=== PATIENT | female | born 1940 | race Hispanic/Latino ===

== ENCOUNTER 2017-01-30 12:49 | Outpatient (CLI) | payer MEDICARE, OTHER ==
--- NOTE | 2017-01-30 16:24 | MRI ---
MRI THORACIC SPINE NONCONTRAST 01/30/17 HISTORY: Back pain. Falls. FINDINGS: The spinal cord throughout the thoracic levels has a normal appearance without evidence of compressi on, expansion or abnormal signal. There is minimal compression of the T7 superior end plate and L1 s uperior end plate with normal bone marrow signal. No residual edema is evident. Very mild posterior disc bulges are present at the T8-9, T9-10, T10-11, and T12-L1 levels without si gnificant compromise of the central canal. No significant foraminal stenosis is apparent. Images including the retroperitoneum shows cysts arising from the cortex of the right kidney. IMPRESSION: 1. Mild chronic compression to the T7 and L1 superior end plates without residual edema. 2. Mild multilevel disc bulges without focal nerve root compression evident. POS: [facility]
== END 2017-01-30 12:50 | disposition home or self-care (01) ==
LOC: SCSMRI 12:49
PROVIDERS: ATTEND Neurological Surgery
DX: M51.14 Intervertebral disc disorders with radiculopathy, thoracic region (principal); G95.29 Other cord compression; M51.04 Intervertebral disc disorders with myelopathy, thoracic region
CPT/HCPCS: 72146

== ENCOUNTER 2017-11-29 21:20 | Inpatient (IN) | payer MEDICARE, OTHER ==
[2017-11-29] MEDS ORDERED: Ondansetron HCl/PF 4 MG/2 ML Vial IVP PRN (22:08)
[2017-11-29] MEDS ORDERED: Ondansetron ODT 4 MG TAB SL PRN (22:08)
[2017-11-29] MEDS ORDERED: Acetaminophen 325 MG TAB PO PRN (22:08)
[2017-11-29] MEDS ORDERED: Sodium Chloride 0.9% 1,000 ML IV SCH (22:08)
[2017-11-29] MEDS ORDERED: Insulin Regular 300 UNITS/3 ML VIAL SC PRN (22:09)
[2017-11-29] MEDS ORDERED: Dextrose 50% Abboject 50 ML SYRINGE IVP PRN (22:09)
[2017-11-29] MEDS ORDERED: Dextrose 5% in Water 1,000 ML IV PRN (22:09)
[2017-11-29] MEDS ORDERED: PROVENTIL INHALER 6.7 G (200 INHALATIONS) INH PRN (22:48)
[2017-11-29] MEDS ORDERED: HYDROcodone/Acetaminophen 10/325 mg Tablet PO PRN (22:48)
[2017-11-29 22:50] VITALS: BMI 25.5
[2017-11-29] MEDS ORDERED: Amitriptyline HCl 25 MG TAB PO SCH (23:30)
[2017-11-30] MEDS ORDERED: Acetaminophen 650 MG in Premix Bag 1 BAG IVPB PRN (00:01)
[2017-11-30] MEDS ORDERED: Acetaminophen 1,000 MG in Premix Bag 1 BAG IVPB PRN (01:23)
[2017-11-30 05:08] LABS: #Eosinphils 0.1 thou/uL (0.0-0.7); #Lymphocytes 0.9 thou/uL (1.20-3.40); #Monocytes 0.6 thou/uL (0.11-0.59); #Neutrophils 7.6 thou/uL (1.40-6.50); %Basophils 0.3 % (0.0-1.0); %Eosinophils 0.7 % (0.0-10.0); %Lymphocytes 10.2 % (21.0-51.0); %Monocytes 6.4 % (0.0-10.0); %Neutrophils 82.5 % (42.0-75.0); Hemoglobin 13.1 g/dL (12.0-16.0); Mean Corpuscular HGB CONC 34.8 g/dL (32.0-36.0); Mean Corpuscular Volume 89.1 fL (78.0-98.0); Mean Platelet Volume 8.9 fL (7.4-10.4); Platelet Count 138 thou/uL (130-400); RBC Distribution Width 12.4 % (11.5-14.5); Red Blood Cell (RBC) Count 4.24 mill/uL (4.20-5.40); White Blood Cell (WBC) Count 9.2 thou/uL (4.8-10.8)
[2017-11-30] MEDS ORDERED: Vancomycin HCl 1 GM in Premix Bag 1 BAG IVPB SCH ×2 (05:30→18:00)
[2017-11-30] MEDS ORDERED: Ibuprofen 200 MG TAB PO SCH (05:30)
[2017-11-30 05:42] LABS: Anion Gap 14 mmol/L (10-20); BUN (Urea Nitrogen) 9 mg/dL (9.8-20.1); Calc. Creatinine Clearance 58 mL/min (70-130); Calcium 9.6 mg/dL (7.8-10.44); Carbon Dioxide 23 mmol/L (23-31); Chloride 104 mmol/L (98-107); Estimated GFR-MDRD 63; Glucose 109 mg/dL (83-110); Potassium 4.2 mmol/L (3.5-5.1); Sodium 137 mmol/L (136-145)
[2017-11-30] MEDS ORDERED: Loperamide HCl 2 MG CAP PO PRN (06:40)
[2017-11-30] MEDS ORDERED: Milk Of Magnesia 30 ML UDCUP PO PRN (06:40)
[2017-11-30] MEDS ORDERED: Diabetic Tussin 200 MG/10 ML UDCUP PO PRN (06:40)
[2017-11-30] MEDS ORDERED: Mag-Al 1200 mg/1200 mg/30 ML UDCUP PO PRN (06:40)
[2017-11-30] MEDS ORDERED: Sodium Chloride 0.65% Nasal 44 ML BOT EA NARE PRN (06:40)
[2017-11-30] MEDS ORDERED: Chloraseptic Spray 180 ml Bottle PO PRN (06:40)
[2017-11-30] MEDS ORDERED: Eucerin (Mineral Oil/Petrolatum,White) 30 gm Jar TOP PRN (06:40)
[2017-11-30] MEDS ORDERED: Artificial Tears 18 DROP/0.9 ML EA EYE PRN (06:40)
[2017-11-30] MEDS ORDERED: Loratadine 10 MG TAB PO PRN (06:40)
[2017-11-30] MEDS ORDERED: HumaLOG 300 UNITS/3 ML VIAL SC PRN (06:40)
[2017-11-30] MEDS ORDERED: hydrALAZINE 20 MG/ML VIAL SLOW IVP PRN (06:40)
[2017-11-30] MEDS ORDERED: Senokot 8.6 MG TAB PO PRN (06:40)
[2017-11-30] MEDS ORDERED: Dextrose 5% in Water 1,000 ML IV PRN (06:40)
[2017-11-30] MEDS ORDERED: Ondansetron ODT 4 MG TAB PO PRN (06:43)
[2017-11-30] MEDS ORDERED: HYDROcodone/Acetaminophen 5/325 mg Tablet PO PRN (06:43)
[2017-11-30] MEDS ORDERED: Ondansetron HCl/PF 4 MG/2 ML Vial IVP PRN (06:43)
[2017-11-30] MEDS ORDERED: Metoclopramide HCl 10 MG/2 ML VIAL IVP PRN (06:43)
[2017-11-30] MEDS ORDERED: Dextrose 50% Abboject 50 ML SYRINGE SLOW IVP PRN (06:43)
[2017-11-30] MEDS ORDERED: Acetaminophen 325 MG TAB PO PRN (06:43)
[2017-11-30] MEDS ORDERED: cefTRIAXone\\ROCEPHIN 2 GM in Sodium Chloride 0.9% 100 ML IVPB SCH (07:00)
--- NOTE | 2017-11-30 07:24 | HP ---
DATE OF ADMISSION: 11/29/2017 PRIMARY CARE PHYSICIAN: Maryanne Henry M.D. CODE STATUS: FULL CODE. TIME OF EVALUATION: 10:35 p.m. CHIEF COMPLAINT: Confusion and fever. HISTORY OF PRESENT ILLNESS: This is a 77-year-old female with past medical history of diabetes, hype rlipidemia, came to hospital after having change in mental status, fever, generalized weakness, inabi lity to complete her activities of daily living due to the weakness. As note, the patient has a hist ory of recurrent UTI, symptoms were severe, no clear triggers, no alleviating factors, no urinary sym ptoms. She did have some increased frequency and mild odor in the urine. REVIEW OF SYSTEMS: Constitutional: Patient had fever, chills, generalized weakness. Respiratory: No cough, sputum production, or shortness of breath. Cardiovascular: No chest pain, palpitation, sh ortness of breath. Gastrointestinal: No nausea, no vomiting, diarrhea, abdominal pain. 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 No headache, feeling lightheaded. Genitourinary: No burning with urination. Randi ent did have dark urine with a foul smell. Extremities: Mild leg swelling. All other systems were reviewed and negative except for the findings mentioned above. 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 PAST SURGICAL HISTORY: Brain tumor removal in 2016, appendectomy, hysterectomy, and oophorectomy. PSYCHIATRIC HISTORY: No history of suicidal ideation. No history of homicidal ideation. Patient posey d a history of depression. SOCIAL HISTORY: No drugs. No smoking history, no alcohol. DRUG ALLERGIES: No known drug allergies. REPORTED MEDICATIONS: Amitriptyline, glipizide, Tradjenta, simvastatin, paroxetine, hydrochlorothiaz benjamin, , albuterol sulfate, guaifenesin, [place]. PHYSICAL EXAMINATION: VITAL SIGNS: On presentation blood pressure 163/101 with heart rate 112, respiratory rate 29, oxygen saturation 90. GENERAL APPEARANCE: The patient is alert, confused, not in any acute distress. HEENT: Eyes: Normal conjunctivae. Moist oral mucosa. Anicteric. NECK: No JVD. RESPIRATORY: Bilateral air entry. No rales, no wheezing. Symmetric expansion. CARDIOVASCULAR: Normal rate, regular rhythm. No murmurs, no gallop. No edema. ABDOMEN: Soft, normal bowel sounds. MUSCULOSKELETAL: Patient has generalized weakness. SKIN: Warm and intact. No pallor, no rash, no redness. Peripheral pulses are present. Capillary r efill seems to be intact. NEUROLOGIC: Patient is confused. No evidence of any neuro focal weakness. Baseline speech. Crania l nerve seems to be intact. PSYCHIATRIC: Patient is in a good mood, confused, unable to fully explore. IMAGING: EKG as discussed with performing physician from ER shows sinus tachycardia with Q-waves in lead 2 and 3. No significant findings. No evidence of any acute ischemic event. Chest x-ray was re viewed, the patient had no infiltrates, no congestive heart failure. CT head was done and was negati ve. LABORATORY DATA: Reviewed. The patient has white count 10.7, hemoglobin 13, MCV 86. Chemistry: So dium 134, potassium 3.9, chloride 102, carbon dioxide 20, anion gap 16, BUN 12, creatinine 0.7, gluco se 199. Hemoglobin A1c 7.6. Lactic acid 2.7. AST 46, ALT 34. Urine was reviewed. The patient has 4 to 6 white count in urine. The rest was normal. ASSESSMENT AND PLAN: The patient will be placed in the hospital with following medical problems: 1. Sepsis. Patient has tachycardia, fever, possible sources of urine, patient also has some rales i n bilateral lobes; however, his chest x-ray is negative, lung will be another source. We will follow cultures, we will continue the patient on Levaquin. Reconcile antibiotics as per sensitivity. 2. Uncontrolled diabetes with blood sugar 200, reconcile home medications, we will place the patient on sliding scale. 3. Acute encephalopathy. Patient has had episode of confusion during the interview, so family membe rs for the past few days, can be sepsis associated encephalopathy likely secondary to underlyin g sepsis. We will give supportive care, we will monitor. 4. Hyperlipidemia, low-cholesterol diet is advised. Reconcile home medications.
[2017-11-30] MEDS: PARoxetine 20 MG TAB PO SCH (07:48)
[2017-11-30] MEDS: Atorvastatin Calcium 40 MG TAB PO SCH (07:48)
[2017-11-30] MEDS: Saccharomyces boulardii 250 MG CAP PO SCH (07:49)
[2017-11-30] MEDS: Hydrochlorothiazide 25 MG TAB PO SCH (07:49)
[2017-11-30] MEDS: guaiFENesin ER 600 MG TAB PO SCH ×2 (07:49→20:42)
[2017-11-30] MEDS: Famotidine 20 MG TAB PO SCH ×2 (07:49→20:43)
[2017-11-30] MEDS: Enoxaparin Sodium 40 MG/0.4 ML SYRINGE SC SCH (07:49)
[2017-11-30] MEDS ORDERED: Vancomycin HCl 500 MG in Sodium Chloride 0.9% 100 ML IVPB SCH (08:00)
[2017-11-30] MEDS ORDERED: RESVERATROL 50 MG PO SCH (09:00)
[2017-11-30 09:09] LABS: Lactic Acid 1.8 mmol/L (0.5-2.2)
--- NOTE | 2017-11-30 09:59 | PDOC.PN ---
- Subjective Encounter Start Date: 11/30/17 Encounter Start Time: 09:20 -: old records requested/rev pt has fever, pt is confused and sleepy, family bedside vitals stable - Objective MAR Reviewed: Yes Vital Signs & Weight: Vital Signs (12 hours) Temp Pulse Resp BP BP Pulse Ox 11/30/17 09:53 100 11/30/17 08:00 98.2 F 85 20 114/67 100 11/30/17 06:12 100 11/30/17 06:00 101.7 F H 11/30/17 05:48 103.1 F H 114 H 22 H 100 11/30/17 04:17 98.4 F 95 16 100 11/30/17 04:00 102.2 F H 110 H 20 171/100 H 100 11/30/17 03:10 91 11/30/17 02:05 99.0 F 100 11/30/17 00:00 102.2 F H 108 H 20 155/90 H 96 11/29/17 22:34 98 Weight Weight 144 lb 3.2 oz I&O: 11/29/17 11/30/17 12/01/17 06:59 06:59 06:59 Intake Total 200 Balance 200 Result Diagrams: 11/30/17 03:58 11/30/17 03:58 Additional Labs: Accuchecks 11/30/17 11/29/17 04:58 22:29 POC Glucose 87 155 H Radiology Reviewed by me: Yes (chest xray and CT brain normal) Phys Exam - Physical Examination Constitutional: NAD HEENT: PERRLA, moist MMs, sclera anicteric Neck: no JVD, supple Respiratory: no wheezing, no rales, no rhonchi Cardiovascular: RRR, no significant murmur, no rub Gastrointestinal: soft, non-tender, no distention, positive bowel sounds Musculoskeletal: no edema, pulses present Neurological: moves all 4 limbs Lymphatic: no nodes Psychiatric: normal affect Skin: no rash, normal turgor Dx/Plan (1) Encephalopathy acute Code(s): G93.40 - ENCEPHALOPATHY, UNSPECIFIED Status: Acute (2) Lactic acidosis Code(s): E87.2 - ACIDOSIS Status: Acute (3) Sepsis with acute organ dysfunction Code(s): A41.9 - SEPSIS, UNSPECIFIED ORGANISM; R65.20 - SEVERE SEPSIS WITHOUT SEPTIC SHOCK Status: Acute (4) UTI (urinary tract infection) Status: Acute (5) Anxiety and depression Code(s): F41.9 - ANXIETY DISORDER, UNSPECIFIED; F32.9 - MAJOR DEPRESSIVE DISORDER, SINGLE EPISODE, UNSPECIFIED Status: Chronic (6) Asthma Code(s): J45.909 - UNSPECIFIED ASTHMA, UNCOMPLICATED Status: Chronic (7) Diabetes type 2, controlled Code(s): E11.9 - TYPE 2 DIABETES MELLITUS WITHOUT COMPLICATIONS Status: Chronic (8) Dyslipidemia Code(s): E78.5 - HYPERLIPIDEMIA, UNSPECIFIED Status: Chronic (9) Hypertension Code(s): I10 - ESSENTIAL (PRIMARY) HYPERTENSION Status: Chronic (10) Dementia Code(s): F03.90 - UNSPECIFIED DEMENTIA WITHOUT BEHAVIORAL DISTURBANCE Status: Suspected Qualifiers: Dementia type: Alzheimer's disease - Plan cont current plan of care, plan discussed w/ family, continue antibiotics * will get CT abdomen and pelvis * continue levaquin * add vancomycin and rocephin * follow culture result * continue gentle IVF * start selected home medication * medication reviewed as below * symptomatic treatment * discussed with family bedside. Review of Systems - Review of Systems Other: not reliable with pt due to encephalopathy - Medications/Allergies Allergies/Adverse Reactions: Allergies Allergy/AdvReac Type Severity Reaction Status Date / Time No Known Allergies Allergy Unverified 11/29/17 21:57 Medications: Current Medications Acetaminophen (Tylenol) 650 mg PO Q4H PRN PRN Reason: Headache/Fever or Mild Pain Hydrocodone Bitart/Acetaminophen ([place] 10/325) 1 tab PO Q6H PRN PRN Reason: Pain 7-10 Hydrocodone Bitart/Acetaminophen ([place] 5/325) 1 tab PO Q4H PRN PRN Reason: Moderate Pain (4-6) Al Hydroxide/Mg Hydroxide (Maalox) 15 ml PO Q4H PRN PRN Reason: Heartburn or Indigestion Albuterol Sulfate (Proventil Hfa) 2 puff INH Q6H PRN PRN Reason: SOB &/or Wheezing Last Admin: 11/30/17 00:00 Dose: 2 puff Albuterol/Ipratropium (Duoneb) 3 ml NEB [id number] PRN PRN Reason: SOB &/or Wheezing Amitriptyline HCl (Elavil) 25 mg PO HS [facility] Artificial Tears (Tears Naturale) 0 drop EA EYE PRN PRN PRN Reason: Dry Eyes Atorvastatin Calcium (Lipitor) 40 mg PO DAILY [facility] Last Admin: 11/30/17 07:48 Dose: 40 mg Dextrose/Water (Dextrose 50%) 25 gm SLOW IVP PRN PRN PRN Reason: Hypoglycemia Enoxaparin Sodium (Lovenox) 40 mg SC 0900 [facility] Last Admin: 11/30/17 07:49 Dose: 40 mg Famotidine (Pepcid) 20 mg PO BID [facility] Last Admin: 11/30/17 07:49 Dose: 20 mg Glucagon (Glucagon) 1 mg IM PRN PRN PRN Reason: Hypoglycemia Guaifenesin (Mucinex) 600 mg PO BID [facility] Last Admin: 11/30/17 07:49 Dose: 600 mg Guaifenesin (Robitussin Sf) 200 mg PO Q4H PRN PRN Reason: Cough Hydralazine HCl (Apresoline) 10 mg SLOW IVP Q4H PRN PRN Reason: Systolic BP > 180 Hydrochlorothiazide (Hydrochlorothiazide) 12.5 mg PO DAILY [facility] Last Admin: 11/30/17 07:49 Dose: 12.5 mg Levofloxacin 750 mg/ Device 150 mls @ 100 mls/hr IVPB Q24HR [facility] Ceftriaxone Sodium 2 gm/ (Sodium Chloride) 100 mls @ 200 mls/hr IVPB 0900 [facility] Dextrose/Water (D5w) 1,000 mls @ 0 mls/hr IV .Q0M PRN PRN Reason: Hypoglycemia Vancomycin HCl 1.25 gm/ Sodium (Chloride) 250 mls @ 166.667 mls/hr IVPB 0600 [facility] Insulin Human Lispro (Humalog) 0 units SC .MODERATE SLIDING SC PRN PRN Reason: Moderate Correctional Scale Insulin Human Lispro (Humalog) 0 units SC .BEDTIME SLIDING SC PRN PRN Reason: Bedtime Correctional Scale Loperamide HCl (Imodium) 2 mg PO PRN PRN PRN Reason: Diarrhea/Loose Stools Loratadine (Claritin) 10 mg PO DAILYPRN PRN PRN Reason: Sinus Symptoms Magnesium Hydroxide (Milk Of Magnesium) 30 ml PO DAILYPRN PRN PRN Reason: Constipation Metoclopramide HCl (Reglan) 5 mg IVP Q4H PRN PRN Reason: Nausea Mineral Oil/White Petrolatum (Eucerin Cream) 0 gm TOP BIDPRN PRN PRN Reason: Dry Skin Miscellaneous Medication (Pharmacy To Dose) 0 each IVPB ASDIR PRN PRN Reason: Pharmacy to Dose VANCOMYCIN Ondansetron HCl (Zofran Odt) 4 mg PO Q6H PRN PRN Reason: Nausea/Vomiting Ondansetron HCl (Zofran) 4 mg IVP Q6H PRN PRN Reason: Nausea/Vomiting Paroxetine HCl (Paxil) 40 mg PO DAILY [facility] Last Admin: 11/30/17 07:48 Dose: 40 mg Phenol (Chloraseptic [place] 180 Ml Bot) 0 ml PO PRN PRN PRN Reason: Sore Throat Saccharomyces Boulardii (Florastor) 250 mg PO DAILY [facility] Last Admin: 11/30/17 07:49 Dose: 250 mg Senna (Senokot) 2 tab PO HSPRN PRN PRN Reason: Constipation Sodium Chloride ([place] Nasal [place] 0.65%) 0 ml EA NARE QIDPRN PRN PRN Reason: Nasal Congestion
[2017-11-30] MEDS: Ibuprofen 600 MG TAB PO PRN (14:51)
--- NOTE | 2017-11-30 16:14 | CT ---
CT OF THE ABDOMEN AND PELVIS WITH IV CONTRAST: Indication: History of urinary tract infection with sepsis and high fever. Comparison: None. FINDINGS: There is mild basilar atelectasis. There is mild fatty infiltration of the liver. There is a large stone within the gallbladder. The gallbladder is atrophic. The pancreas, adrenal gla nds, and spleen appear within normal limits. There is a 2.7 cm cyst involving the superior pole of th e right kidney. There is an additional 1.4 cm cyst involving the superior pole of the right kidney. L eft kidney is normal appearing. There is a mild amount of retained stool within the colon. There is scattered diverticula involving t he colon. There is no evidence of active diverticulitis. There are stable compression abnormalities involving L1 and T7. There is diffuse osteopenia. There is prominent dextroscoliosis of the lumbar spine. IMPRESSION: 1. Cholelithiasis with prominent distention of the gallbladder. Recommend right upper quadrant to ramsey luate for possible acute cholecystitis. 2. Bibasilar atelectasis. 3. Right renal cysts. 4. Diverticulosis. 5. Stable chronic L1 and T7 compression abnormalities. POS: [facility]
[2017-11-30] MEDS: Amitriptyline HCl 25 MG TAB PO SCH (20:42)
[2017-11-30] MEDS: Sodium Chloride 0.9% 1,000 ML IV SCH (20:43)
[2017-12-01] MEDS: Ibuprofen 600 MG TAB PO PRN ×2 (00:09→08:01)
[2017-12-01] MEDS: Vancomycin HCl 1.25 GM in Sodium Chloride 0.9% 250 ML 250 ML IVPB SCH (05:44)
[2017-12-01] MEDS: Hydrochlorothiazide 25 MG TAB PO SCH (08:00)
[2017-12-01] MEDS: Enoxaparin Sodium 40 MG/0.4 ML SYRINGE SC SCH (08:00)
[2017-12-01] MEDS: PARoxetine 20 MG TAB PO SCH (08:01)
[2017-12-01] MEDS: guaiFENesin ER 600 MG TAB PO SCH ×2 (08:01→20:40)
[2017-12-01] MEDS: Atorvastatin Calcium 40 MG TAB PO SCH (08:01)
[2017-12-01] MEDS: Famotidine 20 MG TAB PO SCH ×2 (08:01→20:40)
[2017-12-01] MEDS: Saccharomyces boulardii 250 MG CAP PO SCH (08:01)
--- NOTE | 2017-12-01 08:16 | ULT ---
RIGHT UPPER QUADRANT ULTRASOUND: INDICATION: Cholelithiasis. COMPARISON: Prior CT of the abdomen and pelvis dated 11/30/17. FINDINGS: There is marked gallbladder wall distention with stones. There is gallbladder wall edema and a small amount of pericholecystic fluid. There is no report of a positive sonographic Dumont's sign. The v isualized pancreas is unremarkable. The visualized liver is unremarkable. The right kidney measures 10.7 cm. There is a small cyst within the right kidney superiorly. The common bile duct measured 5 .7 mm. IMPRESSION: 1. Marked gallbladder distention with stones and gallbladder wall thickening with pericholecystic fl uid is suspicious for acute calculus cholecystitis. There is a negative sonographic Dumont's sign. However, the overall imaging findings remain suspicious. 2. Right renal cyst. POS: [facility]
[2017-12-01 08:29] LABS: ALT (SGPT) 38 U/L (8-55); AST (SGOT) 52 U/L (5-34); Albumin 3.8 g/dL (3.4-4.8); Alkaline Phosphatase 88 U/L (40-150); Anion Gap 14 mmol/L (10-20); BUN (Urea Nitrogen) 10 mg/dL (9.8-20.1); Bilirubin, Total 0.7 mg/dL (0.2-1.2); Calc. Creatinine Clearance 63 mL/min (70-130); Carbon Dioxide 20 mmol/L (23-31); Chloride 103 mmol/L (98-107); Estimated GFR-MDRD 70; Globulin 3.4 g/dL (2.4-3.5); Glucose 183 mg/dL (83-110); Potassium 3.9 mmol/L (3.5-5.1); Protein, Total 7.2 g/dL (6.0-8.3); Sodium 133 mmol/L (136-145)
[2017-12-01] MEDS ORDERED: cefTRIAXone\\ROCEPHIN 2 GM in Sodium Chloride 0.9% 100 ML IVPB SCH (09:00)
[2017-12-01 09:13] LABS: #Eosinphils 0.1 thou/uL (0.0-0.7); #Lymphocytes 0.6 thou/uL (1.20-3.40); #Monocytes 0.5 thou/uL (0.11-0.59); #Neutrophils 8.9 thou/uL (1.40-6.50); %Basophils 0.2 % (0.0-1.0); %Lymphocytes 5.7 % (21.0-51.0); %Monocytes 5.1 % (0.0-10.0); %Neutrophils 88.1 % (42.0-75.0); MDiff Complete? YES; Mean Corpuscular HGB CONC 33.9 g/dL (32.0-36.0); Mean Corpuscular Hemoglobin 30.3 pg (27.0-31.0); Mean Corpuscular Volume 89.5 fL (78.0-98.0); Mean Platelet Volume 8.7 fL (7.4-10.4); PLT Morphology Comment Appears Decreased; Platelet Count 111 thou/uL (130-400); RBC Distribution Width 12.4 % (11.5-14.5); White Blood Cell (WBC) Count 10.1 thou/uL (4.8-10.8)
[2017-12-01] MEDS ORDERED: Lidocaine 1% PF 5 ML VIAL ONE (10:10)
[2017-12-01] MEDS ORDERED: PROPOFOL 200 MG/20 ML VIAL ONE (10:10)
[2017-12-01] MEDS ORDERED: Ondansetron HCl/PF 4 MG/2 ML Vial ONE (10:10)
[2017-12-01] MEDS ORDERED: Glycopyrrolate 0.2 MG/ML 5 ML SYRINGE ONE (10:10)
[2017-12-01] MEDS ORDERED: Dexamethasone 20 MG/5 ML VIAL ONE (10:10)
--- NOTE | 2017-12-01 11:05 | PDOC.PN ---
- Subjective Encounter Start Date: 12/01/17 Encounter Start Time: 09:20 Patient seen and examined. No new complaints. No overnight events pt is more alert but still febrile, has RUQ pain - Objective MAR Reviewed: Yes Vital Signs & Weight: Vital Signs (12 hours) Temp Pulse Resp BP BP Pulse Ox 12/01/17 08:00 101.9 F H 108 H 18 99 12/01/17 07:34 101.9 F H 108 H 18 132/69 97 12/01/17 04:00 97.9 F 86 20 112/73 94 L 12/01/17 00:00 100.8 F H 103 H 18 130/73 100 Weight Weight 144 lb 3.2 oz I&O: 11/30/17 12/01/17 12/02/17 06:59 06:59 06:59 Intake Total 200 950 Balance 200 950 Result Diagrams: 12/01/17 07:55 12/01/17 07:55 Additional Labs: Accuchecks 12/01/17 11/30/17 11/30/17 04:28 20:27 16:43 POC Glucose 209 H 203 H 111 H 11/30/17 10:58 POC Glucose 123 H Radiology Reviewed by me: Yes (CT abdomen and US RUQ reviewed) Phys Exam - Physical Examination Constitutional: NAD HEENT: PERRLA, moist MMs, sclera anicteric Neck: no JVD, supple Respiratory: no wheezing, no rales, no rhonchi Cardiovascular: RRR, no significant murmur, no rub Gastrointestinal: soft, no distention, positive bowel sounds RUQ tenderness Musculoskeletal: no edema, pulses present Neurological: non-focal, normal sensation Lymphatic: no nodes Psychiatric: normal affect Skin: no rash, normal turgor Dx/Plan (1) Encephalopathy acute Code(s): G93.40 - ENCEPHALOPATHY, UNSPECIFIED Status: Acute (2) Lactic acidosis Code(s): E87.2 - ACIDOSIS Status: Acute (3) Sepsis with acute organ dysfunction Code(s): A41.9 - SEPSIS, UNSPECIFIED ORGANISM; R65.20 - SEVERE SEPSIS WITHOUT SEPTIC SHOCK Status: Acute (4) UTI (urinary tract infection) Status: Acute (5) Anxiety and depression Code(s): F41.9 - ANXIETY DISORDER, UNSPECIFIED; F32.9 - MAJOR DEPRESSIVE DISORDER, SINGLE EPISODE, UNSPECIFIED Status: Chronic (6) Asthma Code(s): J45.909 - UNSPECIFIED ASTHMA, UNCOMPLICATED Status: Chronic (7) Diabetes type 2, controlled Code(s): E11.9 - TYPE 2 DIABETES MELLITUS WITHOUT COMPLICATIONS Status: Chronic (8) Dyslipidemia Code(s): E78.5 - HYPERLIPIDEMIA, UNSPECIFIED Status: Chronic (9) Hypertension Code(s): I10 - ESSENTIAL (PRIMARY) HYPERTENSION Status: Chronic (10) Dementia Code(s): F03.90 - UNSPECIFIED DEMENTIA WITHOUT BEHAVIORAL DISTURBANCE Status: Suspected Qualifiers: Dementia type: Alzheimer's disease (11) Acute cholecystitis Code(s): K81.0 - ACUTE CHOLECYSTITIS Status: Acute - Plan cont current plan of care, plan discussed w/ family, continue antibiotics * will keep NPO * consult general surgery for evaluation for acute cholecystitis, will need lap katie * continue empiric antibiotics, cefepime, levaquin and vancomycin * discussed test result with * medication reviewed as below * symptomatic treatment * follow culture. Review of Systems - Review of Systems Constitutional: fever. negative: chills, sweats, weakness, malaise, other ENT: negative: Ear Pain, Ear Discharge, Nose Pain, Nose Discharge, Nose Congestion, Mouth Pain, Mouth Swelling, Throat Pain, Throat Swelling, Other Respiratory: negative: Cough, Dry, Shortness of Breath, Hemoptysis, SOB with Excertion, Pleuritic Pain, Sputum, Wheezing Cardiovascular: negative: chest pain, palpitations, orthopnea, paroxysmal nocturnal dyspnea, edema, light headedness, other Gastrointestinal: Abdominal Pain. negative: Nausea, Vomiting, Diarrhea, Constipation, Melena, Hematochezia, Other Genitourinary: negative: Dysuria, Frequency, Incontinence, Hematuria, Retention , Other Musculoskeletal: negative: Neck Pain, Shoulder Pain, Arm Pain, Back Pain, Hand Pain, Leg Pain, Foot Pain, Other Skin: negative: Rash, Lesions, James, Bruising, Other - Medications/Allergies Allergies/Adverse Reactions: Allergies Allergy/AdvReac Type Severity Reaction Status Date / Time No Known Allergies Allergy Unverified 11/29/17 21:57 Medications: Current Medications Acetaminophen (Tylenol) 650 mg PO Q4H PRN PRN Reason: Headache/Fever or Mild Pain Last Admin: 11/30/17 13:03 Dose: 650 mg Hydrocodone Bitart/Acetaminophen ([place] 10/325) 1 tab PO Q6H PRN PRN Reason: Pain 7-10 Hydrocodone Bitart/Acetaminophen ([place] 5/325) 1 tab PO Q4H PRN PRN Reason: Moderate Pain (4-6) Al Hydroxide/Mg Hydroxide (Maalox) 15 ml PO Q4H PRN PRN Reason: Heartburn or Indigestion Albuterol Sulfate (Proventil Hfa) 2 puff INH Q6H PRN PRN Reason: SOB &/or Wheezing Last Admin: 11/30/17 00:00 Dose: 2 puff Albuterol/Ipratropium (Duoneb) 3 ml NEB [id number] PRN PRN Reason: SOB &/or Wheezing Amitriptyline HCl (Elavil) 25 mg PO HS [facility] Last Admin: 11/30/17 20:42 Dose: 25 mg Artificial Tears (Tears Naturale) 0 drop EA EYE PRN PRN PRN Reason: Dry Eyes Atorvastatin Calcium (Lipitor) 40 mg PO DAILY [facility] Last Admin: 12/01/17 08:01 Dose: 40 mg Dextrose/Water (Dextrose 50%) 25 gm SLOW IVP PRN PRN PRN Reason: Hypoglycemia Enoxaparin Sodium (Lovenox) 40 mg SC 0900 [facility] Last Admin: 12/01/17 08:00 Dose: 40 mg Famotidine (Pepcid) 20 mg PO BID [facility] Last Admin: 12/01/17 08:01 Dose: 20 mg Glucagon (Glucagon) 1 mg IM PRN PRN PRN Reason: Hypoglycemia Guaifenesin (Mucinex) 600 mg PO BID [facility] Last Admin: 12/01/17 08:01 Dose: 600 mg Guaifenesin (Robitussin Sf) 200 mg PO Q4H PRN PRN Reason: Cough Hydralazine HCl (Apresoline) 10 mg SLOW IVP Q4H PRN PRN Reason: Systolic BP > 180 Hydrochlorothiazide (Hydrochlorothiazide) 12.5 mg PO DAILY [facility] Last Admin: 12/01/17 08:00 Dose: 12.5 mg Levofloxacin 750 mg/ Device 150 mls @ 100 mls/hr IVPB Q24HR [facility] Last Admin: 12/01/17 00:03 Dose: 150 mls Ceftriaxone Sodium 2 gm/ (Sodium Chloride) 100 mls @ 200 mls/hr IVPB 0900 [facility] Last Admin: 12/01/17 08:00 Dose: 100 mls Dextrose/Water (D5w) 1,000 mls @ 0 mls/hr IV .Q0M PRN PRN Reason: Hypoglycemia Vancomycin HCl 1.25 gm/ Sodium (Chloride) 250 mls @ 166.667 mls/hr IVPB 0600 [facility] Last Admin: 12/01/17 05:44 Dose: 250 mls Sodium Chloride (Normal [place] 0.9%) 1,000 mls @ 50 mls/hr IV .Q20H [facility] Last Admin: 11/30/17 20:43 Dose: 1,000 mls Ibuprofen (Motrin) 600 mg PO Q6H PRN PRN Reason: Fever>101/(Mi/Mod/Sev) Pain Last Admin: 12/01/17 08:01 Dose: 600 mg Insulin Human Lispro (Humalog) 0 units SC .MODERATE SLIDING SC PRN PRN Reason: Moderate Correctional Scale Insulin Human Lispro (Humalog) 0 units SC .BEDTIME SLIDING SC PRN PRN Reason: Bedtime Correctional Scale Loperamide HCl (Imodium) 2 mg PO PRN PRN PRN Reason: Diarrhea/Loose Stools Loratadine (Claritin) 10 mg PO DAILYPRN PRN PRN Reason: Sinus Symptoms Magnesium Hydroxide (Milk Of Magnesium) 30 ml PO DAILYPRN PRN PRN Reason: Constipation Metoclopramide HCl (Reglan) 5 mg IVP Q4H PRN PRN Reason: Nausea Mineral Oil/White Petrolatum (Eucerin Cream) 0 gm TOP BIDPRN PRN PRN Reason: Dry Skin Miscellaneous Medication (Pharmacy To Dose) 0 each IVPB ASDIR PRN PRN Reason: Pharmacy to Dose VANCOMYCIN Ondansetron HCl (Zofran Odt) 4 mg PO Q6H PRN PRN Reason: Nausea/Vomiting Ondansetron HCl (Zofran) 4 mg IVP Q6H PRN PRN Reason: Nausea/Vomiting Paroxetine HCl (Paxil) 40 mg PO DAILY [facility] Last Admin: 12/01/17 08:01 Dose: 40 mg Phenol (Chloraseptic [place] 180 Ml Bot) 0 ml PO PRN PRN PRN Reason: Sore Throat Saccharomyces Boulardii (Florastor) 250 mg PO DAILY [facility] Last Admin: 12/01/17 08:01 Dose: 250 mg Senna (Senokot) 2 tab PO HSPRN PRN PRN Reason: Constipation Sodium Chloride ([place] Nasal [place] 0.65%) 0 ml EA NARE QIDPRN PRN PRN Reason: Nasal Congestion
[2017-12-01] MEDS ORDERED: Bupivacaine/Epinephrine 0.25% 30 ML VIAL ONE (12:46)
[2017-12-01] MEDS ORDERED: Fentanyl 100 MCG/2 ML VIAL ONE (13:08)
--- NOTE | 2017-12-01 13:53 | CON ---
DATE OF CONSULTATION: 12/01/2017. REQUESTING PHYSICIAN: Dr. Rebolledo. HISTORY OF PRESENT ILLNESS: This is a 77-year-old woman presented with reported mental status change associated with fever, fatigue and malaise. According to the patient's family, the symptoms have be en present over 2-3 days prior to this admission. Urinary tract infection has been excluded. CT sca n of the abdomen and pelvis was obtained, which did not reveal any acute intraabdominal pathology. G allstones was seen. Follow up ultrasound of the abdomen was obtained, which reveals gallstones with pericholecystic fluid. I was asked to evaluate the patient to exclude biliary disease. At the time of my evaluation, the patient is complaining of residual epigastric to right upper quadrant abdominal pain. She denies any nausea at the moment. She denies any chills, although she did have some chill s at the time of this admission. She admits to abdominal bloating with frequent flatulence preceding this admission. PAST MEDICAL HISTORY: Significant for type 2 diabetes mellitus, hyperlipidemia, and some brain tumor . PAST SURGICAL HISTORY: Pertinent for appendectomy, total abdominal hysterectomy, bilateral salpingo- oophorectomy, and brain tumor removal in 2016. SOCIAL HISTORY: Patient is and lives at home with her . She denies any cigarette smo darell, ethanol or illicit drug abuse. PREHOSPITAL MEDICATION: Includes Tradjenta, amitriptyline, paroxetine, simvastatin, glipizide, hydro chlorothiazide, [place], and albuterol. FAMILY HISTORY: Noncontributory for this patient's age. ALLERGIES: Patient denies any known drug allergies. REVIEW OF SYSTEMS: A 10-point review of systems essentially unremarkable except for as stated in pas t medical history and chief complaint. PHYSICAL EXAMINATION: GENERAL: This reveals a 77-year-old normally developed woman who is otherwise coherent and interacti ve and appears stated age. The patient is alert and oriented x3, appears to be in no acute distress at the time of my evaluation. HEENT: Reveals normocephalic and atraumatic. Pupils are equal, round, and reactive to light and acc ommodation. Extraocular muscles are intact bilaterally. No sclerae icterus is present. Oral mucosa is pink and moist. No lesions are noted. NECK: Supple. No palpable lymphadenopathy or thyromegaly present. HEART: Reveals regular rate and rhythm, no murmurs or gallops auscultated. LUNGS: Clear to auscultation bilaterally. Her breathing is regular and unlabored. ABDOMEN: Soft with epigastric to right upper quadrant tenderness to palpation, no positive Dumont's sign. Liver and spleen are nonpalpable below costal margin. EXTREMITIES: Reveal 2+ radial and pedal pulses bilaterally. No ankle edema is present. NEUROLOGIC: Reveals no focal deficits present. LABORATORY DATA AND IMAGING: I have reviewed all laboratory studies including CBC with normal white blood cell count. Metabolic profile is also essentially unremarkable. Specifically speaking, total bilirubin and transaminases are essentially normal. I have personally reviewed the CT scan of the ab domen and pelvis, which reveals gallstones and sigmoid colon diverticulosis with no evidence of diver ticulitis. Gallbladder ultrasound reveals gallstones impacted in the gallbladder neck. There is per icholecystic fluid present. The gallbladder wall is not significantly thickened. Common bile duct s ize is normal in diameter for this patient's age at approximately 6 mm. IMPRESSION: Acute cholecystitis with cholelithiasis. PLAN: Laparoscopic cholecystectomy. I have advised the patient of the above findings and plan. I fernanda yi also advised the patient of the risks and benefits of the proposed surgery. Risks include, but n ot limited to bleeding, infection, injury to bile duct or surrounding structures. This information g iven to the patient and her at bedside in the presence of the patient's nurse. The patient a nd her have both indicated understanding of information given. I answered their questions. The patient has granted consent for this surgical intervention. Thank you again, Dr. Rebolledo for allowing me the opportunity to participate in the care of this patie nt.
[2017-12-01] MEDS ORDERED: traMADol HCl 50 MG TAB PO PRN ×2 (14:39)
[2017-12-01] MEDS ORDERED: SUGAMMADEX SODIUM 200 MG/2 ML VIAL ONE (14:43)
--- NOTE | 2017-12-01 15:03 | OP ---
DATE OF OPERATION: 12/01/2017 PREOPERATIVE DIAGNOSIS: Acute cholecystitis with cholelithiasis. POSTOPERATIVE DIAGNOSIS: Acute cholecystitis with cholelithiasis. OPERATION PERFORMED: Laparoscopic cholecystectomy. SURGEON: Gil Stewart D.O. ANESTHESIA: General endotracheal. ESTIMATED BLOOD LOSS: Less than 10 mL. COUNTS: Sponge and instrument count certified as correct x2. COMPLICATIONS: None apparent. INDICATIONS FOR PROCEDURE: This is a 77-year-old woman presented with epigastric right upper quadran t abdominal pain associated with fatigue and malaise. Clinical radiographic examination was consiste nt with acute cholecystitis for which patient was brought to the operating room for cholecystectomy. Findings are consistent with a dilated gallbladder in the usual anatomic location partially encased by omental adhesions. DESCRIPTION OF PROCEDURE: Informed consent obtained from the patient who was brought to the operatin g room and placed in supine position. Following general anesthesia, abdomen is sterilely prepped and draped in usual fashion. The skin below the umbilicus was infiltrated with 0.25% Marcaine with epin ephrine. A small curvilinear infraumbilical incision is made using an 11 scalpel. Umbilical stalk g rasped with Katrin's and elevated. Veress needle was then inserted through the incision and placed i n the peritoneal cavity through which the abdomen was insufflated with 3 liters of CO2 gas. Intraabd ominal pressure noted at 1 mmHg. Following abdominal insufflation, Veress needle was removed and a 5 mm trocar introduced using the Visiport under laparoscopy. Laparoscopy confirmed proper placement o f the port, no injuries to underlying structures. Additional laparoscopy reveals a markedly enlarged gallbladder in the usual anatomic location partially encased by omental adhesions. Under direct lap aroscopy, a 12 mm epigastric and two 5 mm right lateral subcostal ports were placed after the overlyi ng skin were infiltrated with 0.25% Marcaine with epinephrine and appropriate incisions made. The pa tient was placed in a reverse Trendelenburg position, rotated to her left. I introduced a Prestige g rasper through the right lateral subcostal port grasping the fundus of the gallbladder which was elev ated cephalad. Omental adhesions were then dissected off the remainder of the gallbladder using Charley martinez dissector with the cautery. A second Prestige grasper was then applied at the Mckay's pouch wh ich was retracted laterally. The cystic duct was dissected free from surrounding structures at the t riangle of Calot. The duct was divided between clips. Two clips applied proximally and one clip at the junction of the cystic duct and gallbladder. The cystic artery was also dissected free from surr ounding structures and divided between clips in a similar fashion. Gallbladder itself was removed fr om the liver bed using cautery with good hemostasis. Gallbladder was delivered of the abdominal cavi ty using an EndoCatch. Operative site was inspected for good hemostasis. Finding no other pathology , laparoscopy was terminated. Fascia of the epigastric port was closed using 0 Vicryl suture and End o closure device under laparoscopy. The abdomen was desufflated. All ports and instruments removed and accounted for. Skin incisions closed using 4-0 Monocryl suture in subcuticular fashion. Dermabo nd was applied over the incisional closure. The patient tolerated the operation without any apparent complication and was returned to recovery room in stable condition.
[2017-12-01] MEDS: Sodium Chloride 0.9% 1,000 ML IV SCH (15:38)
[2017-12-01] MEDS: Acetaminophen 500 MG TAB PO SCH ×2 (17:19→23:32)
[2017-12-01] MEDS: Amitriptyline HCl 25 MG TAB PO SCH (20:40)
[2017-12-02] MEDS: Acetaminophen 500 MG TAB PO SCH ×3 (05:27→17:35)
[2017-12-02] MEDS: Vancomycin HCl 1.25 GM in Sodium Chloride 0.9% 250 ML 250 ML IVPB SCH (05:27)
[2017-12-02 05:40] LABS: Vancomycin, Trough 5.7 ug/mL
[2017-12-02] MEDS: Saccharomyces boulardii 250 MG CAP PO SCH (08:03)
[2017-12-02] MEDS: Famotidine 20 MG TAB PO SCH ×2 (08:03→22:45)
[2017-12-02] MEDS: Atorvastatin Calcium 40 MG TAB PO SCH (08:04)
[2017-12-02] MEDS: Hydrochlorothiazide 25 MG TAB PO SCH (08:04)
[2017-12-02] MEDS: PARoxetine 20 MG TAB PO SCH (08:05)
[2017-12-02] MEDS: guaiFENesin ER 600 MG TAB PO SCH ×2 (08:05→22:45)
[2017-12-02] MEDS: Enoxaparin Sodium 40 MG/0.4 ML SYRINGE SC SCH (08:05)
--- NOTE | 2017-12-02 09:43 | PDOC.PN ---
- Subjective Encounter Start Date: 12/02/17 Encounter Start Time: 08:30 Patient seen and examined. No new complaints. No overnight events pt is doing well, no fever - Objective MAR Reviewed: Yes Vital Signs & Weight: Vital Signs (12 hours) Temp Pulse Resp BP BP Pulse Ox 12/02/17 07:46 97.8 F 91 20 113/65 97 12/02/17 04:00 98 F 83 16 120/63 91 L 12/02/17 00:00 99 F 75 16 122/65 93 L Weight Weight 144 lb 3.2 oz I&O: 12/01/17 12/02/17 12/03/17 06:59 06:59 06:59 Intake Total 950 360 Balance 950 360 Result Diagrams: 12/01/17 07:55 12/01/17 07:55 Additional Labs: Accuchecks 12/02/17 12/01/17 12/01/17 04:56 21:29 16:17 POC Glucose 247 H 357 H 220 H 12/01/17 11:04 POC Glucose 175 H Phys Exam - Physical Examination Constitutional: NAD HEENT: PERRLA, moist MMs, sclera anicteric Neck: no JVD, supple Respiratory: no wheezing, no rales, no rhonchi Cardiovascular: RRR, no significant murmur, no rub Gastrointestinal: soft, non-tender, no distention, positive bowel sounds surgical site clean Musculoskeletal: no edema, pulses present Neurological: non-focal, normal sensation, moves all 4 limbs Lymphatic: no nodes Psychiatric: normal affect Skin: no rash, normal turgor Dx/Plan (1) Encephalopathy acute Code(s): G93.40 - ENCEPHALOPATHY, UNSPECIFIED Status: Resolved (2) Acute cholecystitis Code(s): K81.0 - ACUTE CHOLECYSTITIS Status: Acute Comment: s/p lap katie (3) Lactic acidosis Code(s): E87.2 - ACIDOSIS Status: Resolved (4) Sepsis with acute organ dysfunction Code(s): A41.9 - SEPSIS, UNSPECIFIED ORGANISM; R65.20 - SEVERE SEPSIS WITHOUT SEPTIC SHOCK Status: Acute (5) UTI (urinary tract infection) Status: Acute Comment: due to enteroccocus (6) Anxiety and depression Code(s): F41.9 - ANXIETY DISORDER, UNSPECIFIED; F32.9 - MAJOR DEPRESSIVE DISORDER, SINGLE EPISODE, UNSPECIFIED Status: Chronic (7) Asthma Code(s): J45.909 - UNSPECIFIED ASTHMA, UNCOMPLICATED Status: Chronic (8) Diabetes type 2, controlled Code(s): E11.9 - TYPE 2 DIABETES MELLITUS WITHOUT COMPLICATIONS Status: Chronic (9) Dyslipidemia Code(s): E78.5 - HYPERLIPIDEMIA, UNSPECIFIED Status: Chronic (10) Hypertension Code(s): I10 - ESSENTIAL (PRIMARY) HYPERTENSION Status: Chronic (11) Dementia Code(s): F03.90 - UNSPECIFIED DEMENTIA WITHOUT BEHAVIORAL DISTURBANCE Status: Suspected Qualifiers: Dementia type: Alzheimer's disease - Plan cont current plan of care, plan discussed w/ family, continue antibiotics, PT/OT * dc cefepime and vancomycin * continue iv levaquin today * ambulate with PT today * advance diet today * discussed with * will monitor today * will consider discharge tomorrow if stable and doing well with PT. Review of Systems - Review of Systems Constitutional: negative: fever, chills, sweats, weakness, malaise, other Eyes: negative: Pain, Vision Change, Conjunctivae Inflammation, Eyelid Inflammation, Redness, Other ENT: negative: Ear Pain, Ear Discharge, Nose Pain, Nose Discharge, Nose Congestion, Mouth Pain, Mouth Swelling, Throat Pain, Throat Swelling, Other Respiratory: negative: Cough, Dry, Shortness of Breath, Hemoptysis, SOB with Excertion, Pleuritic Pain, Sputum, Wheezing Cardiovascular: negative: chest pain, palpitations, orthopnea, paroxysmal nocturnal dyspnea, edema, light headedness, other Gastrointestinal: negative: Nausea, Vomiting, Abdominal Pain, Diarrhea, Constipation, Melena, Hematochezia, Other Genitourinary: negative: Dysuria, Frequency, Incontinence, Hematuria, Retention , Other Musculoskeletal: negative: Neck Pain, Shoulder Pain, Arm Pain, Back Pain, Hand Pain, Leg Pain, Foot Pain, Other Skin: negative: Rash, Lesions, James, Bruising, Other - Medications/Allergies Allergies/Adverse Reactions: Allergies Allergy/AdvReac Type Severity Reaction Status Date / Time No Known Allergies Allergy Unverified 11/29/17 21:57 Medications: Current Medications Acetaminophen (Tylenol) 1,000 mg PO Q6HR [facility] Last Admin: 12/02/17 05:27 Dose: 1,000 mg Al Hydroxide/Mg Hydroxide (Maalox) 15 ml PO Q4H PRN PRN Reason: Heartburn or Indigestion Albuterol Sulfate (Proventil Hfa) 2 puff INH Q6H PRN PRN Reason: SOB &/or Wheezing Last Admin: 11/30/17 00:00 Dose: 2 puff Albuterol/Ipratropium (Duoneb) 3 ml NEB [id number] PRN PRN Reason: SOB &/or Wheezing Amitriptyline HCl (Elavil) 25 mg PO HS [facility] Last Admin: 12/01/17 20:40 Dose: 25 mg Artificial Tears (Tears Naturale) 0 drop EA EYE PRN PRN PRN Reason: Dry Eyes Atorvastatin Calcium (Lipitor) 40 mg PO DAILY [facility] Last Admin: 12/02/17 08:04 Dose: 40 mg Dextrose/Water (Dextrose 50%) 25 gm SLOW IVP PRN PRN PRN Reason: Hypoglycemia Enoxaparin Sodium (Lovenox) 40 mg SC 0900 [facility] Last Admin: 12/02/17 08:05 Dose: 40 mg Famotidine (Pepcid) 20 mg PO BID [facility] Last Admin: 12/02/17 08:03 Dose: 20 mg Glucagon (Glucagon) 1 mg IM PRN PRN PRN Reason: Hypoglycemia Guaifenesin (Mucinex) 600 mg PO BID [facility] Last Admin: 12/02/17 08:05 Dose: 600 mg Guaifenesin (Robitussin Sf) 200 mg PO Q4H PRN PRN Reason: Cough Hydralazine HCl (Apresoline) 10 mg SLOW IVP Q4H PRN PRN Reason: Systolic BP > 180 Hydrochlorothiazide (Hydrochlorothiazide) 12.5 mg PO DAILY [facility] Last Admin: 12/02/17 08:04 Dose: 12.5 mg Levofloxacin 750 mg/ Device 150 mls @ 100 mls/hr IVPB Q24HR [facility] Last Admin: 12/01/17 23:33 Dose: 150 mls Dextrose/Water (D5w) 1,000 mls @ 0 mls/hr IV .Q0M PRN PRN Reason: Hypoglycemia Sodium Chloride (Normal Saline 0.9%) 1,000 mls @ 50 mls/hr IV .Q20H [facility] Last Admin: 12/01/17 15:38 Dose: 1,000 mls Ibuprofen (Motrin) 600 mg PO Q6H PRN PRN Reason: Fever>101/(Mi/Mod/Sev) Pain Last Admin: 12/01/17 08:01 Dose: 600 mg Insulin Human Lispro (Humalog) 0 units SC .MODERATE SLIDING SC PRN PRN Reason: Moderate Correctional Scale Insulin Human Lispro (Humalog) 0 units SC .BEDTIME SLIDING SC PRN PRN Reason: Bedtime Correctional Scale Loperamide HCl (Imodium) 2 mg PO PRN PRN PRN Reason: Diarrhea/Loose Stools Loratadine (Claritin) 10 mg PO DAILYPRN PRN PRN Reason: Sinus Symptoms Magnesium Hydroxide (Milk Of Magnesium) 30 ml PO DAILYPRN PRN PRN Reason: Constipation Metoclopramide HCl (Reglan) 5 mg IVP Q4H PRN PRN Reason: Nausea Mineral Oil/White Petrolatum (Eucerin Cream) 0 gm TOP BIDPRN PRN PRN Reason: Dry Skin Miscellaneous Medication (Pharmacy To Dose) 0 each IVPB ASDIR PRN PRN Reason: Pharmacy to Dose VANCOMYCIN Ondansetron HCl (Zofran Odt) 4 mg PO Q6H PRN PRN Reason: Nausea/Vomiting Ondansetron HCl (Zofran) 4 mg IVP Q6H PRN PRN Reason: Nausea/Vomiting Paroxetine HCl (Paxil) 40 mg PO DAILY [facility] Last Admin: 12/02/17 08:05 Dose: 40 mg Phenol (Chloraseptic [place] 180 Ml Bot) 0 ml PO PRN PRN PRN Reason: Sore Throat Saccharomyces Boulardii (Florastor) 250 mg PO DAILY [facility] Last Admin: 12/02/17 08:03 Dose: 250 mg Senna (Senokot) 2 tab PO HSPRN PRN PRN Reason: Constipation Sodium Chloride ([place] Nasal [place] 0.65%) 0 ml EA NARE QIDPRN PRN PRN Reason: Nasal Congestion Tramadol HCl (Ultram) 50 mg PO Q6H PRN PRN Reason: Moderate Pain (4-6) Tramadol HCl (Ultram) 100 mg PO Q6H PRN PRN Reason: Severe Pain (7-10)
[2017-12-02] MEDS: HumaLOG 300 UNITS/3 ML VIAL SC PRN ×2 (11:55→17:39)
[2017-12-02] MEDS: Sodium Chloride 0.9% 1,000 ML IV SCH (14:20)
[2017-12-02] MEDS ORDERED: Vancomycin HCl 1.25 GM in Sodium Chloride 0.9% 250 ML 250 ML IVPB SCH (18:00)
[2017-12-02] MEDS: Ibuprofen 600 MG TAB PO PRN (18:40)
[2017-12-02] MEDS: Amitriptyline HCl 25 MG TAB PO SCH (22:44)
[2017-12-03] MEDS: Acetaminophen 500 MG TAB PO SCH ×4 (00:14→17:11)
[2017-12-03] MEDS ORDERED: Non-Formulary Item 1 EACH (Linagliptin [Tradjenta] 5 MG) PO SCH (09:00)
[2017-12-03] MEDS: Hydrochlorothiazide 25 MG TAB PO SCH (09:26)
[2017-12-03] MEDS: Famotidine 20 MG TAB PO SCH ×2 (09:27→20:18)
[2017-12-03] MEDS: Alogliptin 25 MG TAB PO SCH (09:27)
[2017-12-03] MEDS: PARoxetine 20 MG TAB PO SCH (09:27)
[2017-12-03] MEDS: guaiFENesin ER 600 MG TAB PO SCH ×2 (09:27→20:19)
[2017-12-03] MEDS: Atorvastatin Calcium 40 MG TAB PO SCH (09:27)
[2017-12-03] MEDS: Saccharomyces boulardii 250 MG CAP PO SCH (09:29)
[2017-12-03] MEDS: Polyethylene Glycol 3350 17 GM Packet PO SCH (09:29)
[2017-12-03] MEDS: Senokot 8.6 MG TAB PO SCH ×2 (09:29→20:22)
[2017-12-03] MEDS: Enoxaparin Sodium 40 MG/0.4 ML SYRINGE SC SCH (09:29)
[2017-12-03] MEDS: Sodium Chloride 0.9% 1,000 ML IV SCH (09:31)
--- NOTE | 2017-12-03 11:05 | PDOC.PN ---
- Subjective Encounter Start Date: 12/03/17 Encounter Start Time: 08:30 Patient seen and examined. No new complaints. No overnight events pt had coughing spell with food, so speech consulted, she is npo pt and requesting rehab placement - Objective MAR Reviewed: Yes Vital Signs & Weight: Vital Signs (12 hours) Temp Pulse Resp BP Pulse Ox 12/03/17 07:18 98.6 F 80 16 130/78 99 12/03/17 04:00 98.0 F 69 16 113/73 93 L 12/03/17 00:00 97.5 F L 84 16 113/69 93 L Weight Weight 144 lb 3.2 oz I&O: 12/02/17 12/03/17 12/04/17 06:59 06:59 06:59 Intake Total 360 Balance 360 Result Diagrams: 12/01/17 07:55 12/01/17 07:55 Additional Labs: Accuchecks 12/03/17 12/02/17 12/02/17 05:11 20:10 17:02 POC Glucose 243 H 195 H 352 H 12/02/17 11:50 POC Glucose 387 H Phys Exam - Physical Examination Constitutional: NAD HEENT: PERRLA, moist MMs, sclera anicteric Neck: no JVD, supple Respiratory: no wheezing, no rales, no rhonchi Cardiovascular: RRR, no significant murmur, no rub Gastrointestinal: soft, non-tender, no distention, positive bowel sounds Musculoskeletal: no edema, pulses present Neurological: non-focal, normal sensation Psychiatric: normal affect Skin: no rash, normal turgor Dx/Plan (1) Encephalopathy acute Code(s): G93.40 - ENCEPHALOPATHY, UNSPECIFIED Status: Resolved (2) Acute cholecystitis Code(s): K81.0 - ACUTE CHOLECYSTITIS Status: Acute Comment: s/p lap katie (3) Lactic acidosis Code(s): E87.2 - ACIDOSIS Status: Resolved (4) Sepsis with acute organ dysfunction Code(s): A41.9 - SEPSIS, UNSPECIFIED ORGANISM; R65.20 - SEVERE SEPSIS WITHOUT SEPTIC SHOCK Status: Acute (5) UTI (urinary tract infection) Status: Acute Comment: due to enteroccocus (6) Anxiety and depression Code(s): F41.9 - ANXIETY DISORDER, UNSPECIFIED; F32.9 - MAJOR DEPRESSIVE DISORDER, SINGLE EPISODE, UNSPECIFIED Status: Chronic (7) Asthma Code(s): J45.909 - UNSPECIFIED ASTHMA, UNCOMPLICATED Status: Chronic (8) Diabetes type 2, controlled Code(s): E11.9 - TYPE 2 DIABETES MELLITUS WITHOUT COMPLICATIONS Status: Chronic (9) Dyslipidemia Code(s): E78.5 - HYPERLIPIDEMIA, UNSPECIFIED Status: Chronic (10) Hypertension Code(s): I10 - ESSENTIAL (PRIMARY) HYPERTENSION Status: Chronic (11) Dementia Code(s): F03.90 - UNSPECIFIED DEMENTIA WITHOUT BEHAVIORAL DISTURBANCE Status: Suspected Qualifiers: Dementia type: Alzheimer's disease - Plan cont current plan of care, plan discussed w/ family, continue antibiotics, PT/OT , [employer] and crm, speech therapy, respiratory therapy * speech evaluation * continue levaquin * gentle ivf * restart diabetes meds * medication reviewed as below * symptomatic treatment * counter caser for snu evaluation * discharge soon. Review of Systems - Review of Systems ENT: negative: Ear Pain, Ear Discharge, Nose Pain, Nose Discharge, Nose Congestion, Mouth Pain, Mouth Swelling, Throat Pain, Throat Swelling, Other Respiratory: negative: Cough, Dry, Shortness of Breath, Hemoptysis, SOB with Excertion, Pleuritic Pain, Sputum, Wheezing Cardiovascular: negative: chest pain, palpitations, orthopnea, paroxysmal nocturnal dyspnea, edema, light headedness, other Gastrointestinal: negative: Nausea, Vomiting, Abdominal Pain, Diarrhea, Constipation, Melena, Hematochezia, Other Genitourinary: negative: Dysuria, Frequency, Incontinence, Hematuria, Retention , Other Musculoskeletal: negative: Neck Pain, Shoulder Pain, Arm Pain, Back Pain, Hand Pain, Leg Pain, Foot Pain, Other Skin: negative: Rash, Lesions, James, Bruising, Other - Medications/Allergies Allergies/Adverse Reactions: Allergies Allergy/AdvReac Type Severity Reaction Status Date / Time No Known Allergies Allergy Unverified 11/29/17 21:57 Medications: Current Medications Acetaminophen (Tylenol) 1,000 mg PO Q6HR [facility] Last Admin: 12/03/17 07:20 Dose: Not Given Al Hydroxide/Mg Hydroxide (Maalox) 15 ml PO Q4H PRN PRN Reason: Heartburn or Indigestion Albuterol Sulfate (Proventil Hfa) 2 puff INH Q6H PRN PRN Reason: SOB &/or Wheezing Last Admin: 11/30/17 00:00 Dose: 2 puff Albuterol/Ipratropium (Duoneb) 3 ml NEB [id number] PRN PRN Reason: SOB &/or Wheezing Alogliptin Benzoate (Alogliptin) 25 mg PO DAILY [facility] Last Admin: 12/03/17 09:27 Dose: 25 mg Amitriptyline HCl (Elavil) 25 mg PO HS [facility] Last Admin: 12/02/17 22:44 Dose: 25 mg Artificial Tears (Tears Naturale) 0 drop EA EYE PRN PRN PRN Reason: Dry Eyes Atorvastatin Calcium (Lipitor) 40 mg PO DAILY [facility] Last Admin: 12/03/17 09:27 Dose: 40 mg Dextrose/Water (Dextrose 50%) 25 gm SLOW IVP PRN PRN PRN Reason: Hypoglycemia Enoxaparin Sodium (Lovenox) 40 mg SC 0900 [facility] Last Admin: 12/03/17 09:29 Dose: 40 mg Famotidine (Pepcid) 20 mg PO BID [facility] Last Admin: 12/03/17 09:27 Dose: 20 mg Glipizide (Glucotrol Xl) 2.5 mg PO BID[facility] Last Admin: 12/03/17 09:27 Dose: 2.5 mg Glucagon (Glucagon) 1 mg IM PRN PRN PRN Reason: Hypoglycemia Guaifenesin (Mucinex) 600 mg PO BID [facility] Last Admin: 12/03/17 09:27 Dose: 600 mg Guaifenesin (Robitussin Sf) 200 mg PO Q4H PRN PRN Reason: Cough Hydralazine HCl (Apresoline) 10 mg SLOW IVP Q4H PRN PRN Reason: Systolic BP > 180 Hydrochlorothiazide (Hydrochlorothiazide) 12.5 mg PO DAILY [facility] Last Admin: 12/03/17 09:26 Dose: 12.5 mg Levofloxacin 750 mg/ Device 150 mls @ 100 mls/hr IVPB Q24HR [facility] Last Admin: 12/03/17 00:14 Dose: 150 mls Dextrose/Water (D5w) 1,000 mls @ 0 mls/hr IV .Q0M PRN PRN Reason: Hypoglycemia Sodium Chloride (Normal Saline 0.9%) 1,000 mls @ 50 mls/hr IV .Q20H [facility] Last Admin: 12/03/17 09:31 Dose: 1,000 mls Ibuprofen (Motrin) 600 mg PO Q6H PRN PRN Reason: Fever>101/(Mi/Mod/Sev) Pain Last Admin: 12/02/17 18:40 Dose: 600 mg Insulin Human Lispro (Humalog) 0 units SC .MODERATE SLIDING SC PRN PRN Reason: Moderate Correctional Scale Last Admin: 12/02/17 17:39 Dose: 10 unit Insulin Human Lispro (Humalog) 0 units SC .BEDTIME SLIDING SC PRN PRN Reason: Bedtime Correctional Scale Loperamide HCl (Imodium) 2 mg PO PRN PRN PRN Reason: Diarrhea/Loose Stools Loratadine (Claritin) 10 mg PO DAILYPRN PRN PRN Reason: Sinus Symptoms Magnesium Hydroxide (Milk Of Magnesium) 30 ml PO DAILYPRN PRN PRN Reason: Constipation Metoclopramide HCl (Reglan) 5 mg IVP Q4H PRN PRN Reason: Nausea Mineral Oil/White Petrolatum (Eucerin Cream) 0 gm TOP BIDPRN PRN PRN Reason: Dry Skin Ondansetron HCl (Zofran Odt) 4 mg PO Q6H PRN PRN Reason: Nausea/Vomiting Ondansetron HCl (Zofran) 4 mg IVP Q6H PRN PRN Reason: Nausea/Vomiting Paroxetine HCl (Paxil) 40 mg PO DAILY [facility] Last Admin: 12/03/17 09:27 Dose: 40 mg Phenol (Chloraseptic [place] 180 Ml Bot) 0 ml PO PRN PRN PRN Reason: Sore Throat Polyethylene Glycol (Miralax) 17 gm PO DAILY [facility] Last Admin: 12/03/17 09:29 Dose: 17 gm Saccharomyces Boulardii (Florastor) 250 mg PO DAILY [facility] Last Admin: 12/03/17 09:29 Dose: 250 mg Senna (Senokot) 2 tab PO HSPRN PRN PRN Reason: Constipation Senna (Senokot) 1 tab PO BID [facility] Last Admin: 12/03/17 09:29 Dose: 1 tab Sodium Chloride ([employer] Nasal [place] 0.65%) 0 ml EA NARE QIDPRN PRN PRN Reason: Nasal Congestion Sodium Chloride (Flush - Normal Saline) 10 ml IVF Q12HR [facility] Last Admin: 12/03/17 09:29 Dose: Not Given Sodium Chloride (Flush - Normal Saline) 10 ml IVF PRN PRN PRN Reason: Saline Flush Tramadol HCl (Ultram) 50 mg PO Q6H PRN PRN Reason: Moderate Pain (4-6) Last Admin: 12/03/17 09:27 Dose: 50 mg Tramadol HCl (Ultram) 100 mg PO Q6H PRN PRN Reason: Severe Pain (7-10)
--- NOTE | 2017-12-03 12:31 | PRG ---
DATE OF SERVICE: 12/03/2017 SUBJECTIVE: Ms. Sanchez is a 77-year-old woman who is postop day #2 status post laparoscopic katie cystectomy. The patient reports adequate pain control. She tolerated general diet. She has not had any bowel movement yet. She reports generalized weakness which predates surgery. OBJECTIVE: VITAL SIGNS: This morning includes blood pressure 130/78, pulse 80, respiratory rate 16, temperature is 98.6 degrees Fahrenheit, oxygen saturation 99% on room air. HEART: Reveals regular rate and rhythm, no murmurs, gallops auscultated. CHEST: Lungs clear to auscultation bilaterally. Breathing is regular and unlabored. ABDOMEN: Soft, nontender and nondistended. Incisions are intact, clean, and dry. She has no perito [place]ol[place] signs on examination. NEUROLOGIC: Reveals no focal deficits present. IMPRESSION: 1. Postop day #2, status post laparoscopic cholecystectomy. 2. Debility. PLAN: 1. Increase activity per physical and occupational therapy. 2. The patient has been evaluated by PM&R for possible inpatient rehabilitation post-discharge.
[2017-12-03] MEDS: HumaLOG 300 UNITS/3 ML VIAL SC PRN (17:11)
[2017-12-03] MEDS: Amitriptyline HCl 25 MG TAB PO SCH (20:19)
[2017-12-04] MEDS: Acetaminophen 500 MG TAB PO SCH ×3 (00:58→12:21)
[2017-12-04] MEDS: Hydrochlorothiazide 25 MG TAB PO SCH (09:48)
[2017-12-04] MEDS: Alogliptin 25 MG TAB PO SCH (09:49)
[2017-12-04] MEDS: Atorvastatin Calcium 40 MG TAB PO SCH (09:49)
[2017-12-04] MEDS: PARoxetine 20 MG TAB PO SCH (09:50)
[2017-12-04] MEDS: guaiFENesin ER 600 MG TAB PO SCH (09:50)
[2017-12-04] MEDS: Enoxaparin Sodium 40 MG/0.4 ML SYRINGE SC SCH (09:50)
[2017-12-04] MEDS: Famotidine 20 MG TAB PO SCH (09:50)
[2017-12-04] MEDS: Saccharomyces boulardii 250 MG CAP PO SCH (09:52)
[2017-12-04] MEDS: Polyethylene Glycol 3350 17 GM Packet PO SCH (09:52)
[2017-12-04] MEDS: Senokot 8.6 MG TAB PO SCH (09:53)
--- NOTE | 2017-12-04 10:21 | DIS ---
DATE OF ADMISSION: 11/29/2017 DATE OF DISCHARGE: 12/04/2017 PRIMARY CARE PHYSICIAN: Maryanne Henry M.D. DISCHARGE DISPOSITION: [facility] bed. PRIMARY DISCHARGE DIAGNOSES: 1. Sepsis with acute organ dysfunction. 2. Acute encephalopathy, resolved. 3. Acute cholecystitis, status post laparoscopic cholecystectomy. 4. Urinary tract infection due to Enterococcus. 5. Lactic acidosis, resolved. 6. Physical deconditioning. SECONDARY DISCHARGE DIAGNOSES: Hypertension, dyslipidemia, diabetes type 2, anxiety and depression, senile dementia, asthma. PRIMARY PROCEDURE/OPERATION: Dr. Stewart did laparoscopic cholecystectomy. RADIOLOGICAL INVESTIGATION: Chest x-ray was normal. Abdomen and pelvis CT scan showed findings sugg estive of acute cholecystitis. Abdominal ultrasound also confirmed acute cholecystitis. SIGNIFICANT LABORATORY DATA: WBC 10.1, hemoglobin 13.0, platelet 111,000. Sodium 133, potassium 3.9 , BUN 10, creatinine 0.80, calcium 9.0, AST 52, ALT 38, alkaline phosphatase 88, albumin 3.8. Urine culture positive for Enterococcus. Blood culture negative. DISCHARGE MEDICATIONS: Levaquin 750 mg p.o. daily for 7 days, ProAir HFA 2 puffs q.6 hourly p.r.n., [place] 10 one tablet q.6 hourly p.r.n., amitriptyline 25 mg p.o. at bedtime, Glucotrol 2.5 mg p.o. b.i .d., Mucinex 600 mg p.o. b.i.d., hydrochlorothiazide 12.5 mg p.o. daily, Tradjenta 5 mg p.o. daily, P axil 40 mg p.o. daily, resveratrol 50 mg p.o. daily, Zocor 80 mg p.o. daily. CONTRAINDICATIONS: None. CODE STATUS: Full code. INPATIENT CONSULTANTS: Dr. Stewart was consulted for laparoscopic cholecystectomy. TEST RESULTS PENDING ON DISCHARGE: None. ALLERGIES: No known drug allergy. DISCHARGE PLAN: Post hospital, the patient will follow up with Dr. Stewart as instructed. The patient will make appointment with Dr. Power in 1 week. HOSPITAL COURSE: A 77-year-old female who was admitted by Dr. Connor on 11/29/2017. Please see nc s H and P for further details. The patient was initially evaluated at [facility] emergency room for alte red mental status. She appeared septic. She was sent to our hospital for further treatment. Her ur inalysis was suggestive of UTI and that is why initially we thought UTI was contributing to sepsis. She was admitted to medical floor and she was treated with broad spectrum antibiotic therapy with Tan ephin and Levaquin. We noted that the patient was having persistent fever and she was having poor ap petite and nausea and on our examination, the patient was found with right upper quadrant tenderness and that is why we did CT of the abdomen and pelvis, which did show findings suspicious for acute cho lecystitis. After that, we did ultrasound of the gallbladder, which showed gallbladder wall thickeni ng and gallbladder distention. Clinically, she was having acute cholecystitis and that is why we con sulted Dr. Stewart and he also agreed with that assessment. The patient was taken for laparoscopic cho lecystectomy. After that, the patient remained afebrile. We discontinued Rocephin and based on cult ure result, we only continued with levofloxacin only, which was also prescribed upon discharge. Her urine culture grew Enterococcus and her blood culture remained negative. This patient is afebrile wh ile in hospital. She is hemodynamically stable while in hospital. She also had speech therapy evalu ation, but she is doing very well. She has physical weakness and that is why the patient and family member requested rehab placement and with help of rifle case repairer, we arranged [facility] bed. Today, I spoke with Dr. Power and updated about this patient's hospital course and plan. The patient is medically stable for discharge. The patient is seen and examined at bedside today. PHYSICAL EXAMINATION: VITAL SIGNS: Currently, temperature 98.0, pulse 85, respiratory rate 20, saturation 94% on room air, blood pressure 151/82, weight 144 pounds. GENERAL: The patient is currently alert, awake, in no obvious acute distress. HEAD: Normocephalic, atraumatic. EYES: Pupils round and reactive to light. Extraocular muscle intact. ENT: Oropharynx within normal limits. Moist mucous membranes. No oral lesion, no pharyngeal erythe ma, no exudate. NECK: Supple, no JVD, no thyromegaly, no carotid bruit. LUNGS: Clear to auscultation without any rhonchi or rales. CARDIAC: S1, S2 regular without any murmur. ABDOMEN: Soft and benign without any tenderness. EXTREMITIES: No edema. NEUROLOGIC: Nonfocal examination. REVIEW OF SYSTEMS: Reviewed and negative. Paper work for discharge done. Discharge medication talita nciliation done. Plan of care discussed with the patient and the patient's . Total time spent on discharge day, 32 minutes.
--- NOTE | 2017-12-04 10:44 | PRG ---
DATE OF SERVICE: 12/04/2017 SUBJECTIVE: Ms. Sanchez is a 77-year-old woman who is postoperative day #3 status post laparoscopi c cholecystectomy. The patient reports adequate pain control. She tolerates general diet. She is h aving normal bowel and urinary function. PHYSICAL EXAMINATION: VITAL SIGNS: Today includes blood pressure 151/82, pulse 85, respirations 20, temperature 98 degrees Fahrenheit and oxygen saturation 94% on room air. ABDOMEN: Soft, nondistended. Incisions are intact, clean, and dry. She has no peritoneal signs on examination. NEUROLOGIC: Examination reveals no focal deficits present. IMPRESSION: Postoperative day #3 status post laparoscopic cholecystectomy. The patient is certainly stable for discharge from a surgical standpoint. I have recommended inpatient rehabilitation post-d ischarge.
[2017-12-04 11:40] VITALS: BP 142/86; TEMP 97.9
[2017-12-04] MEDS: HumaLOG 300 UNITS/3 ML VIAL SC PRN (12:21)
== END 2017-12-04 15:35 | DRG 853 ==
LOC: T4-B 21:20
PROVIDERS: ADMIT Hospitalist; ATTEND Hospitalist
PROC: 0FT44ZZ Resection of Gallbladder, Percutaneous Endoscopic Approach (ICD-10-PCS; principal; 2017-12-01)
DX: A41.9 Sepsis, unspecified organism (principal); G93.40 Encephalopathy, unspecified; K80.00 Calculus of gallbladder with acute cholecystitis without obstruction; E87.2 Acidosis; N39.0 Urinary tract infection, site not specified; R65.20 Severe sepsis without septic shock; E78.5 Hyperlipidemia, unspecified; F32.9 Major depressive disorder, single episode, unspecified; E11.65 Type 2 diabetes mellitus with hyperglycemia; F41.9 Anxiety disorder, unspecified; I10 Essential (primary) hypertension; J45.909 Unspecified asthma, uncomplicated; F03.90 Unspecified dementia, unspecified severity, without behavioral disturbance, psychotic disturbance, mood disturbance, and anxiety
CPT/HCPCS: 36415; 36416; 74177; 76705; 80048; 80053; 80202; 83605; 85025; 88304; 94640; 94760; A4216; G8978-GP-CM; G8979-GP-CK; G8987-GO-CK; G8988-GO-CJ; G8996-GN-CJ; G8997-GN-CJ; J0131; J0696; J1100; J1650; J1956; J2001; J2405; J2704; J3010; J3370; J7050; J7620

== ENCOUNTER 2018-09-23 12:58 | Outpatient (CLI) | payer MEDICARE, OTHER ==
--- NOTE | 2018-09-23 13:40 | ULT ---
US Renal Bilateral STANDARD: 09/23/2018 12:00 AM CLINICAL HISTORY: Mixed incontinence. STUDY: Renal ultrasound COMPARISON: None. FINDINGS: Right kidney: Echogenicity: Normal. Masses/cysts: 3 cm cyst Hydronephrosis: None. Calcifications: None. Length: 9.9 cm Left kidney: Echogenicity: Normal. Masses/cysts: None. Hydronephrosis: None. Calcifications: None. Length: 9.2 cm There is a 9 mm nonshadowing echogenic structure along the right bladder wall which is of uncertain s ignificance. IMPRESSION: 1. Right renal cyst 2. Nonspecific echogenic structure along the right aspect of the urinary bladder wall.
== END 2018-09-23 12:59 | disposition home or self-care (01) ==
LOC: SCSULT 12:58
PROVIDERS: ATTEND Urology
DX: N39.46 Mixed incontinence (principal); R35.0 Frequency of micturition; N28.1 Cyst of kidney, acquired
CPT/HCPCS: 76770